=== PATIENT | female | born 1960 | race Caucasian/White ===

== ENCOUNTER 2021-04-03 16:56 | Emergency (ER) | payer BC, SELFPAY ==
[2021-04-03 17:16] VITALS: BP 121/82; PULSE 107; RESP 16; TEMP 36.6; O2SAT 96
[2021-04-03 17:25] LABS: Add Urine Microscopic? NO; Appearance Urine Clear (Clear); Bilirubin Urine Negative (Negative); Blood Urine Negative (Negative); Color Urine Yellow (Yellow); Glucose Urine UA Negative (Negative); Ketones Urine Negative (Negative); Leukocyte Esterase Ur Negative LEU/UL (Negative); Nitrate Urine Negative (Negative); Protein Urine Negative (Negative); Specific Grav Ur <= 1.005 (1.010-1.020); Urobilinogen Urine 0.2 mg/dL (0.2-1.0)
[2021-04-03 17:58] VITALS: RESP 15; O2SAT 100
--- NOTE | 2021-04-03 17:58 | ED.GENADULT ---
HPI - General Adult General Chief complaint: Back Pain/Injury Stated complaint: back pain Time Seen by Provider: 04/03/21 17:20 Related Data Home Medications Medication Instructions Recorded Confirmed lisinopril 30 mg PO DAILY 04/03/21 04/03/21 omeprazole 20 mg PO DAILY 04/03/21 04/03/21 Allergies Allergy/AdvReac Type Severity Reaction Status Date / Time No Known Allergies Allergy Unverified 12/22/13 14:32 Course Vital Signs Vital signs: Vital Signs Temperature 36.6 C 04/03/21 17:16 Pulse Rate 107 H 04/03/21 17:16 Respiratory Rate 16 04/03/21 17:16 Blood Pressure 121/82 04/03/21 17:16 Pulse Oximetry 96 04/03/21 17:16 Temperature 36.6 C 04/03/21 17:16 Pulse Rate 107 H 04/03/21 17:16 Respiratory Rate 16 04/03/21 17:16 Blood Pressure 121/82 04/03/21 17:16 Pulse Oximetry 96 04/03/21 17:16 Medical Decision Making Vital Signs Vital Signs: Vital Signs Temperature 36.6 C 04/03/21 17:16 Pulse Rate 107 H 04/03/21 17:16 Respiratory Rate 16 04/03/21 17:16 Blood Pressure 121/82 04/03/21 17:16 Pulse Oximetry 96 04/03/21 17:16 Temperature 36.6 C 04/03/21 17:16 Pulse Rate 107 H 04/03/21 17:16 Respiratory Rate 16 04/03/21 17:16 Blood Pressure 121/82 04/03/21 17:16 Pulse Oximetry 96 04/03/21 17:16 Lab Data Labs: Lab Results 04/03/21 Range/Units 17:21 Urine Color Yellow (Yellow) Urine Appearance Clear (Clear) Urine pH 6.0 (5.0-8.0) Ur Specific [place] <= 1.005 L (1.010-1.020) Urine Protein Negative (Negative) Urine Glucose (UA) Negative (Negative) Urine Ketones Negative (Negative) Ur Blood (Man) Negative (Negative) Urine Nitrate Negative (Negative) Urine Bilirubin Negative (Negative) Urine Urobilinogen 0.2 (0.2-1.0) mg/dL Leukocyte Esterase Rfl Negative (Negative) CONSTANTIN/UL Discharge Plan Discharge Clinical Impression: Urinary incontinence Qualifiers: Urinary Incontinence type: other incontinence Qualified Code(s): N39.498 - Other specified urinary incontinence Patient Disposition: Home, Self-Care Condition: Stable Instructions: Antibiotic Form, Urinary Incontinence (ED) Additional Instructions: Follow up with urology or gynecology as soon as possible Prescriptions: No Action lisinopril 30 mg tablet 30 mg PO DAILY RF: 0 omeprazole 20 mg capsule,delayed release(DR/EC) 20 mg PO DAILY RF: 0 Follow-up/Referrals: Alyssa,MD Isak [Primary Care Provider] - Time of Disposition: 18:00
--- NOTE | 2021-04-07 06:15 | ED.BACK ---
HPI - Back Pain/Injury General Chief Complaint: Back Pain/Injury Stated Complaint: back pain Time Seen by Provider: 04/03/21 17:20 Source: patient Mode of arrival: ambulatory Limitations: no limitations History of Present Illness HPI Narrative: Miss Bojorquez comes in because of worsening urinary incontinence. She has had what sounds like stress incontinence for quite some time. It had been relatively stable. Within the last three days it has seemed to get much worse. This has been quite disturbing to her and she comes in now to be evaluated for incontinence. No new medications. She has not felt she had a bladder infection. Measures taken at home have not helped. no other associated sign / symptoms. Nothing appears to have precipitated worsening of this condition Onset (ago): day(s) Timing: intermittent Severity: moderate Similar Symptoms Previously: Yes Relieving factors: none Associated symptoms: denies other symptoms and urinary incontinence Related Data Home Medications Medication Instructions Recorded Confirmed lisinopril 30 mg PO DAILY 04/03/21 04/03/21 omeprazole 20 mg PO DAILY 04/03/21 04/03/21 Allergies Allergy/AdvReac Type Severity Reaction Status Date / Time No Known Allergies Allergy Unverified 12/22/13 14:32 Review of Systems Constitutional: Constitutional: Reports no additional constitutional complaints Eyes: Eyes: Reports no additional eye complaints ENT: Reports system reviewed and no additional complaints, except as documented Cardiovascular: Cardiovascular: Reports no additional cardiovascular complaints Respiratory: Respiratory: Reports no additional respiratory complaints Gastrointestinal: Gastrointestinal: Reports no additional gastrointestinal complaints Genitourinary: Genitourinary: Reports no additional female genitourinary complaints Musculoskeletal: Musculoskeletal: Reports no additional musculoskeletal complaints Integumentary/Breasts: Skin/Breast: Reports system reviewed and no additional complaints, except as docu Neurologic: Reports system reviewed and no additional complaints, except as documented Psychiatric: Psychiatric: Reports no additional psychiatric complaints Endocrine: Endocrine: Reports no additional endocrine complaints Hematologic/Lymphatic: Hematologic/Lymphatic: Reports no additional hematologic/lymphatic complaints [facility] Past Medical History Medical History (Updated 04/07/21 @ 06:49 by Julio Mays MD) GERD (gastroesophageal reflux disease) HTN (hypertension) Surgical History Surgical History (Updated 04/07/21 @ 06:45 by Julio Mays MD) History of knee replacement Family History Family History (Updated 04/07/21 @ 06:45 by Julio Mays MD) Other Family history non-contributory Social History Social History (Updated 04/07/21 @ 06:47 by Julio Mays MD) Smoking status: Never smoker Living arrangements: with family Exam Const: General: no acute distress and alert Orientation/consciousness: patient oriented x3 HENMT: Head: normal to inspection Ears: external ears normal General nose exam: Normal external nose present Mouth: Yes Normal oral and palatal mucosa present Throat: posterior oropharynx normal Eyes: Conjunctivae: conjunctivae normal Neck: Neck: normal visual inspection and no lymphadenopathy Chest: Chest palpation & inspection: normal inspection of the chest Resp: Effort & Inspection: normal respiratory effort Auscultation: clear to auscultation bilaterally Cardio: Rate: regular rate Rhythm: regular rhythm GI: Auscultation: normal bowel sounds (nontender) : General: Yes no CVA tenderness Skin: General skin exam: normal color Neuro: General: patient oriented x3 and moves all extremities Extrem: General: normal to inspection Psych: Appearance: grossly normal Mental Status: mental status grossly normal Thought content: Yes Normal thought content present Course Course Emergency Course:
== END 2021-04-03 18:09 | disposition home or self-care (01) ==
PROVIDERS: Emergency Provider Emergency Medicine; PCP Family Medicine
DX: R32 Unspecified urinary incontinence (principal); K21.9 Gastro-esophageal reflux disease without esophagitis; I10 Essential (primary) hypertension; Z96.659 Presence of unspecified artificial knee joint
CPT/HCPCS: 81003; 99282; 99283

== ENCOUNTER 2023-02-27 01:04 | Day surgery (SDC) | payer BC, SELFPAY ==
[2023-02-17 12:40] VITALS: BMI 34.6
--- NOTE | 2023-02-17 12:45 | PC.NURSE ---
Report to the Outpatient Waiting Room, entrance under the green pavilion located off [facility], at time 1100 on date 02/27/23. Planned Procedure Time: 1200. Time changes happen often and if your time is changed the preop area will call you the afternoon before. - You and your visitor will be asked to self-screen and do not enter if you have any COVID symptoms. - A mask is optional within the hospital at this time. Patients may have LIGHT BREAKFAST. Take the following medications with a SIP of water the morning of surgery: PRESCRIBED DO NOT STOP ANY OF YOUR OTHER PRESCRIPTION MEDICATIONS PRIOR TO SURGERY EXCEPT THE FOLLOWING Medications to discontinue per physician: N/A Date to take last dose: N/A Please no make-up, nail bhutanese, hairspray, perfume, deodorant, or body powder the day of surgery. No jewelry (including any body piercings) or valuables the day of surgery, leave them at home. Please take a shower or bath the night before, or the morning of, surgery with an antibacterial soap. Wear comfortable, loose fitting clothing. - Jewelry must be removed prior to entering the operating room. Rings and piercings that are not removed may be cut off. - The hospital will not accept responsibility for valuables. - Please leave all valuables, including medications, at home the day of surgery. YOU MAY DRIVE YOURSELF HOME FROM THE HOSPITAL. Follow any additional instructions given to you from your surgeon. If you or anyone in your household have experienced Covid symptoms in the past week, please notify your surgeon or the nurse liaison at the phone number below for possible testing. Telephone instructions given to PT - CHELSEY COHEN and asked if any additional questions and then verbalized understanding. Patient advised to call surgeon office or pre surgery nurse liaison [phone] if any additional questions.
[2023-02-27 11:26] VITALS: BP 184/103; PULSE 84; RESP 16; TEMP 36.4; O2SAT 99
--- NOTE | 2023-02-27 11:51 | WPDHPUPDATE1 ---
History and Physical Update Update Date/Time: 02/27/23 11:51 History and Physical has been reviewed, including an updated exam of the patient. There are NO changes in the patient's condition. Risks, benefits, and alternatives have been discussed and questions answered. Patient agrees to proceed with procedure.
[2023-02-27 12:10] VITALS: BP 191/94; PULSE 80; RESP 16; O2SAT 96
[2023-02-27 12:20] VITALS: BP 184/91; PULSE 81; RESP 14; O2SAT 95
[2023-02-27] MEDS: LIDO 1%/EPINEPHRINE 1:100,000 50 ML VIAL INFILTRATE (12:20)
[2023-02-27 12:30] VITALS: BP 163/80; PULSE 80; RESP 14; O2SAT 95
--- NOTE | 2023-02-27 12:35 | W.PM.PROC2 ---
Procedure Note - Detailed Date of Procedure 02/27/23 Pre-op Diagnosis 2cm right shoulder mass Post-op Diagnosis Same (Lipoma) Procedure Performed 1. Excision of 2 cm right shoulder mass 2. Layered closure Surgeon Reymundo Moulton, DO Anesthesia Local (1% lidocaine with epinephrine) Indications This is a 62-year-old woman who presented with a painful mass on her right shoulder region. She 1st noticed this about 3 or 4 months ago. The area is slightly tender with activity or pressing it. She had an ultrasound which showed a soft tissue mass consistent a lipoma. Discussions were made the patient about treatment options and decision was made to proceed with excision 2 cm right shoulder mass the operating room under local anesthesia. Findings Excision 2 cm right shoulder mass was performed. The mass appeared to be a subcutaneous lipoma. It was completely excised and sent to the lab for pathology. A layered closure was then performed using 3-0 Vicryl deep dermal sutures followed by 4-0 Monocryl subcuticular suture. Description of Procedure Procedure as well as risks, benefits, and alternatives were discussed with the patient. Written consent was obtained and placed in chart prior to procedure. Patient was brought back to surgical suite. She was placed supine on operating table. Time-out was done to confirm patient and procedure. Right shoulder area was prepped and draped in sterile fashion using chlorhexidine prep. 1% lidocaine with epinephrine was infiltrated locally over mass. A 2 cm incision was then made using a 15 blade scalpel directly over mass. The mass was identified and carefully dissected free from the surrounding subcutaneous attachments using blunt dissection and electrocautery. The mass was completely excised and sent to the lab for pathology. The wound bed was then inspected. No other masses were identified. Hemostasis was achieved with electrocautery. Deep dermis was then reapproximated using 3-0 Vicryl inverted interrupted sutures. The skin was approximated using 4-0 Monocryl running subcuticular suture. Exofin glue was then applied on top. The patient was then transferred to recovery. Estimated Blood Loss 2 Pathology Yes (2 cm right shoulder mass) Complications No immediate complications Condition Stable Disposition Same day [facility] Billing Surgery - Charge Forward: Surgery Billing
[2023-02-27 12:36] VITALS: BP 149/95; PULSE 77; RESP 16; O2SAT 100
== END 2023-02-27 12:50 | disposition home or self-care (01) ==
PROVIDERS: PCP Family Medicine; Visit Provider Surgery
PROC: (CPT 24075; principal; 2023-02-27 12:00)
DX: D17.21 Benign lipomatous neoplasm of skin and subcutaneous tissue of right arm (principal)
CPT/HCPCS: 24075; 88304; A9270

== ENCOUNTER 2024-06-28 23:24 | Emergency (ER) | payer OTHER, SELFPAY ==
[2024-06-28 23:24] VITALS: BP 151/91; PULSE 72; RESP 18; TEMP 36.2; O2SAT 99
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
[2024-06-28] MEDS: TETANUS,DIPHTHERIA,AC PERTUSSIS ADULT 0.5 ML (ADACEL) IM (23:39)
--- NOTE | 2024-06-28 23:40 | PC.NURSE ---
non adherent telfa and coban to cover wound.
== END 2024-06-28 23:53 | disposition home or self-care (01) ==
LOC: CHSED 23:49
PROVIDERS: Emergency Provider Emergency Medicine; PCP Family Medicine
DX: T22.011A Burn of unspecified degree of right forearm, initial encounter (principal); T31.0 Burns involving less than 10% of body surface; I10 Essential (primary) hypertension; Z23 Encounter for immunization; Z87.891 Personal history of nicotine dependence; X13.1XXA Other contact with steam and other hot vapors, initial encounter; Y92.009 Unspecified place in unspecified non-institutional (private) residence as the place of occurrence of the external cause
CPT/HCPCS: 90471; 90715; 99282

== ENCOUNTER 2025-04-04 13:44 | Outpatient (CLI) | payer OTHER, SELFPAY ==
--- NOTE | ~2025-04-04 | XR_ITS ---
HISTORY: Fall x1 week, Lt. shoulder pain; worsening. COMPARISON: None TECHNIQUE: 3 views of the left shoulder were performed FINDINGS: No acute fracture. The glenohumeral and acromioclavicular joint space is maintained The visualized portion of the adjacent left lung is clear. Tacks are identified projecting over the left humeral head suggesting prior tendon repair. IMPRESSION: No acute fracture or anterior dislocation. Reviewed, dictated and finalized at location A.
--- OUTSIDE RECORDS SUMMARY | 2025-04-04 13:48 | XMS_ITS | Patient Health Record ---
Author Organization [employer] [facility] Address [address] [place] [address] Care Team Providers Care Vice Chairman Name Role Phone JOSE SMALL Unavailable [phone] Isak Shah Unavailable Unavailable Allergies No Known Allergies Reason For Referral No Information Medications Medication SIG (Take, Route, Frequency, Duration) Notes Start Date End Date Status CEPHALEXIN 500 MG CAPSULE for -2 *Reorder from [facility] for eRx and Interaction Alerts* 02/06/2023 Active LISINOPRIL 30 MG TABLET for -2 *Reorder from [facility] for eRx and Interaction Alerts* 01/31/2023 Active FLUCONAZOLE 200 MG TABLET for -2 *Reorder from [facility] for eRx and Interaction Alerts* 11/11/2022 Active MELOXICAM 15 MG TABLET for -2 *Reorder from [facility] for eRx and Interaction Alerts* 01/01/2023 Active ATORVASTATIN 20 MG TABLET for -2 *Reorder from [facility] for eRx and Interaction Alerts* 02/03/2023 Active BENZONATATE 200 MG CAPSULE for -2 *Reorder from [facility] for eRx and Interaction Alerts* 02/17/2023 Active MELOXICAM 15MG TAB for -2 *[facility]Rx and Interaction Alerts* 03/30/2023 Active AMOX-CLAV 875-125 MG TABLET for -2 *Reorder from [facility] for eRx and Interaction Alerts* 02/17/2023 Active METFORMIN HCL 850 MG TABLET for -2 *Reorder from [facility] for eRx and Interaction Alerts* 02/08/2023 Active HYDROCODONE-ACETAMIN 5-325 MG for -2 *Reorder from [facility] for eRx and Interaction Alerts* 05/10/2022 Active CYCLOBENZAPRINE 10 MG TABLET for -2 *Reorder from [facility] for eRx and Interaction Alerts* 02/28/[address] 40 MG CAPSULE for -2 *Re[facility] from [facility] for [facility]Rx and Interaction Alerts* 03/19/2023 Active PREDNISONE 50 MG TABLET for -2 [facility]* 02/17/2023 Active Problems Problem Type SNOMED Code ICD Code Onset Dates Problem Status W/U Status Risk Notes Problem Tinea unguium (937688900) Tinea unguium (B35.1) 2 Active confirmed Problem Family history of ischemic heart disease (545789691) Family history of ischemic heart disease and other diseases of the circulatory system (Z82.49) 2 Active confirmed Problem Essential hypertension (01059528) Essential (primary) hypertension (I10) 2 Active confirmed Plan Of Treatment No Information Insurance Providers Payer Name Payer Address Payer Phone Subscriber Number Group Number Insured Name Patient Relationship to Insured Coverage Start Date Coverage End Date [employer] [facility] [address] [address] [place] [address] [id number] CHELSEY COHEN Self - patient is the insured 3
== END 2025-04-04 13:45 | disposition home or self-care (01) ==
LOC: CHSIMG 13:46
PROVIDERS: PCP Family Medicine; Visit Provider Family Medicine
DX: M25.512 Pain in left shoulder (principal)
CPT/HCPCS: 73030

== ENCOUNTER 2025-05-15 06:52 | Outpatient (CLI) | payer OTHER, SELFPAY ==
--- NOTE | ~2025-05-15 | US_ITS ---
Duplex Sonography of the bilateral lower extremities: Indication: Right leg swelling and erythema Sagittal and transverse B-mode images as well as color-flow imaging were performed on the right and l eft femoral and popliteal veins. B-mode examination was done without and with compression in the tra nsverse plane. There is good visualization of the bilateral common femoral, proximal profunda femora l, superficial femoral, greater saphenous, and popliteal veins. Normal flow was seen on color-flow im aging. Normal compressibility was demonstrated. Visualized calf veins are also patent. Impression: No evidence of deep vein thrombosis involving either lower extremity. Reviewed, dictated and finalized at location M. Impression: No evidence of deep vein thrombosis involving either lower extremit y.
--- OUTSIDE RECORDS SUMMARY | 2025-05-15 06:57 | XMS_ITS | Patient Health Record ---
Author Organization [employer] Address [address] [place] [address] Care Team Providers Care Shark Biologist Name Role Phone JOSE SMALL Unavailable [phone] Isak Shah Unavailable Unavailable Allergies No Known Allergies Reason For Referral No Information Medications Medication SIG (Take, Route, Frequency, Duration) Notes Start Date End Date Status CEPHALEXIN 500 MG CAPSULE for -2 *Reorder from [facility] for eRx and Interaction Alerts* 02/06/2023 Active LISINOPRIL 30 MG TABLET for -2 *Reorder from [facility] for eRx and Interaction Alerts* 01/31/2023 Active FLUCONAZOLE 200 MG TABLET for -2 *Reorder from [facility] for eRx and Interaction Alerts* 11/11/2022 Active MELOXICAM 15 MG TABLET for -2 *Reorder from [facility] for eRx and Interaction Alerts* 01/01/2023 Active ATORVASTATIN 20 MG TABLET for -2 *Reorder from [facility] for eRx and Interaction Alerts* 02/03/2023 Active BENZONATATE 200 MG CAPSULE for -2 *Reorder from [facility] for eRx and Interaction Alerts* 02/17/2023 Active MELOXICAM 15MG TAB for -2 *[facility]* 03/30/2023 Active AMOX-CLAV 875-125 MG TABLET for -2 *Reorder from [facility] for eRx and Interaction Alerts* 02/17/2023 Active METFORMIN HCL 850 MG TABLET for -2 *[facility] and Interaction Alerts* 02/08/2023 Active HYDROCODONE-ACETAMIN 5-325 MG for -2 *[facility] for [facility]Rx and Interaction Alerts* 05/10/2022 Active CYCLOBENZAPRINE 10 MG TABLET for -2 *Reorder from [facility] for eRx and Interaction Alerts* 02/28/[address] 40 MG CAPSULE for -2 *[facility] for [facility]Rx and Interaction Alerts* 03/19/2023 Active PREDNISONE 50 MG TABLET for -2 *[facility] for [facility]Rx and Interaction Alerts* 02/17/2023 Active Problems Problem Type SNOMED Code ICD Code Onset Dates Problem Status W/U Status Risk Notes Problem Tinea unguium (817821713) Tinea unguium (B35.1) 2 Active confirmed Problem Family history of ischemic heart disease and other diseases of the circulatory system (Z82.49) 2 Active confirmed Problem Essential hypertension (27084004) Essential (primary) hypertension (I10) 2 Active confirmed Plan Of Treatment No Information Insurance Providers Payer Name Payer Address Payer Phone Subscriber Number Group Number Insured Name Patient Relationship to Insured Coverage Start Date Coverage End Date [employer] [facility] [address] [address] [facility] [place] [place] [id number] CHELSEY COHEN Self - patient is the insured 3
== END 2025-05-15 06:53 | disposition home or self-care (01) ==
LOC: CHSIMG 06:55
PROVIDERS: PCP Family Medicine; Visit Provider Family Medicine
DX: R60.0 Localized edema (principal)
CPT/HCPCS: 93970

== ENCOUNTER 2025-05-21 14:05 | Outpatient (CLI) | payer OTHER, SELFPAY ==
--- NOTE | ~2025-05-21 | XR_ITS ---
EXAM: XR ankle RT min 3V, XR foot RT min 3V, XR tibia fibula RT 2V DATE: 05/21/2025 14:33 HISTORY: PAIN IN RT ANKLE, RT FOOT, RT LOWER LEG fall 2 weeks ago . COMPARISON: None available. FINDINGS: Partially visualized, uncomplicated appearing right knee arthroplasty hardware. Osteopenia . No fracture or dislocation. No lytic or blastic lesion. Mild degenerative changes in the ankle and foot. Hallux valgus. Achilles and plantar enthesopathy. Pes planus. No erosion or periosteal change. Scattered vascular calcifications. IMPRESSION: No acute osseous finding in the right tibia/fibula, right ankle, or right foot. If there is knee pain consider dedicated radiographs of the knee, given the incomplete visualization of the ar throplasty hardware. Reviewed, dictated and finalized at [facility]. IMPRESSION: No acute osseous finding in the right tibia/fibula, right ankle, or right foot. If there is knee pain consider dedicated radiographs of the knee, given the incomplete visualization of the arthroplasty hardware. IMPRESSION: No acute osseous finding in the right tibia/fibula, right ankle, or right foot. If there is knee pain consider dedicated radiographs of the knee, given the incomplete visualization of the arthroplasty hardware.
--- OUTSIDE RECORDS SUMMARY | 2025-05-21 14:10 | XMS_ITS | Patient Health Record ---
Author Organization [facility] Address [address] [place] [address] Care Team Providers Care Alkylation Operator Name Role Phone JOSE SMALL Unavailable [phone] Isak Shah Unavailable Unavailable Allergies No Known Allergies Reason For Referral No Information Medications Medication SIG (Take, Route, Frequency, Duration) Notes Start Date End Date Status CEPHALEXIN 500 MG CAPSULE for -2 *Reorder from [facility] for eRx and Interaction Alerts* 02/06/2023 Active LISINOPRIL 30 MG TABLET for -2 *Reorder from [facility] for eRx and Interaction Alerts* 01/31/2023 Active FLUCONAZOLE 200 MG TABLET for -2 *Reorder from [facility] for eRx and Interaction Alerts* 11/11/2022 Active MELOXICAM 15 MG TABLET for -2 *Reorder from [facility] for eRx and Interaction Alerts* 01/01/2023 Active ATORVASTATIN 20 MG TABLET for -2 *Reorder from [facility] for eRx and Interaction Alerts* 02/03/2023 Active BENZONATATE 200 MG CAPSULE for -2 *Reorder from [facility] for eRx and Interaction Alerts* 02/17/2023 Active MELOXICAM 15MG TAB for -2 *Reorder from [facility] for eRx and Interaction Alerts* 03/30/2023 Active AMOX-CLAV 875-125 MG TABLET for -2 *Reorder from [facility] for eRx and Interaction Alerts* 02/17/2023 Active METFORMIN HCL 850 MG TABLET for -2 *Reorder from [facility] for eRx and Interaction Alerts* 02/08/2023 Active HYDROCODONE-ACETAMIN 5-325 MG for -2 *Reorder from [facility] for eRx and Interaction Alerts* 05/10/2022 Active CYCLOBENZAPRINE 10 MG TABLET for -2 *Reorder from [facility] for eRx and Interaction Alerts* 02/28/[address] 40 MG CAPSULE for -2 *Reorder from [facility] for eRx and Interaction Alerts* 03/19/2023 Active PREDNISONE 50 MG TABLET for -2 *[facility] Interaction Alert[facility]* 02/17/2023 Active Problems Problem Type SNOMED Code ICD Code Onset Dates Problem Status W/U Status Risk Notes Problem Tinea unguium (712280576) Tinea unguium (B35.1) 2 Active confirmed Problem Family history of ischemic heart disease (493321681) Family history of ischemic heart disease and other diseases of the circulatory system (Z82.49) 2 Active confirmed Problem Essential hypertension (72700372) Essential (primary) hypertension (I10) 2 Active confirmed Plan Of Treatment No Information Insurance Providers Payer Name Payer Address Payer Phone Subscriber Number Group Number Insured Name Patient Relationship to Insured Coverage Start Date Coverage End Date [employer] [facility] [address] [address] [place] [address] [id number] CHELSEY COHEN Self - patient is the insured 3
--- OUTSIDE RECORDS SUMMARY | 2025-05-21 14:10 | XMS_ITS | Encounter Summary ---
Author Organization [facility] Address Count includes the [facility] [place] [address] Care Team Providers Care Attractions Associate Name Role Phone Isak Shah MD Primary Care Provider Encounter Details Date Type Department Care Team (Late st Contact Info) Description 04/13/2019 Abstract SFL CONVERSION [address] [address] , Generic Conversion, Social History Tobacco Use Types Packs/Day Years Used Date Smoking Tobacco: Never Assessed Comments Unknown Sex and Gender Information Value Date Recorded Sex Assigned at Female 01/14/2025 5:13 PM CDT Legal Sex Female 7:43 PM CDT Gender Identity Not on file Sexual Orientation Not on file documented as of this encounter Plan of Treatment Not on file documented as of this encounter Visit Diagnoses Not on filedocumented in this encounter Additional Health Concerns Infection Onset Date Last Indicated Resolved Time COVID-19 Rule Out 04/05/2021 04/05/2021 04/05/2021 10:12 AM CDT COVID-19 Confirmed 04/05/2021 04/05/2021 12:34 AM CDT COVID-19 Rule Out 07/26/2021 07/26/2021 07/26/2021 8:17 PM CDT documented as of this encounter Care Teams Attractions Associate Relationship Specialty Start Date End Date Isak Shah MD [address] [place] [phone] PCP - General FAMILY PRACTICE 06/13/19 documented as of this encounter
--- OUTSIDE RECORDS SUMMARY | 2025-05-21 14:10 | XMS_ITS | Clinical Summary ---
Author Organization [facility] Address [address] [place] [address] Care Team Providers Care Slime Plant Operator Name Role Phone Isak Shah MD Primary Care Provider Allergies No known active allergies Medications lisinopril 30 MG tablet Take 1 tablet (30 mg total) by mouth daily. 0 06/08/2019 Active Multiple Vitamins-Minera ls (MULTIPLE VITAMINS/WOMENS OR) Take 1 tablet by mouth daily. Active magnesium oxide 400 (241.3 Mg) MG tablet Take 1 tablet (400 mg total) by mouth daily. Active vitamin C 250 MG tablet Take 1 tablet (250 mg total) by mouth daily. Active calcium carbonate 500 MG chewable tablet Chew 1 tablet (500 mg total) by mouth daily. Active vitamin D3, cholecalciferol , 1000 UNIT Tab tablet Take 1 tablet (25 mcg total) by mouth daily. Active omeprazole 40 MG capsule Take 1 capsule (40 mg total) by mouth daily. 08/10/2021 Active metFORMIN (GLUCOPHAGE) 850 MG tablet Take 1 tablet (850 mg total) by mouth daily with breakfast. 02/08/2023 Active Active Problems Problem Noted Date Diagnosed Date Rotator cuff tear arthropathy, unspecified later ality 01/13/2022 S/P arthroscopy of left shoulder 09/09/2021 Aftercare following surgery 08/09/2021 Traumatic partial tear of bi ceps tendon, left, subsequent encounter 07/15/2021 Traumatic injury of left sub scapularis tendon, subsequent encounter 07/15/2021 Osteoarthritis of left AC (acromioclavicular) gibran int 06/11/2021 Effusion of left knee 05/14/2020 Instability of knee joint, left 04/13/2020 Pes planus of both feet 10/22/2019 Aftercare following right knee joint replacement surgery 09/23/2019 Resolved Problems Problem Noted Date Diagnosed Date Resolved Date Sprain of lateral collateral ligament of left knee, initial encounter 04/13/2020 04/14/2020 Status post total right knee replacement 09/10/2019 09/23/2019 Osteoarthritis of right knee 09/09/2019 09/10/2019 Tear of medial meniscus of r ight knee, current, unspecified tear type, subsequent encounter 08/21/2019 09/10/2019 Primary osteoarthritis of right knee 06/18/2019 09/10/2019 Encounters Date Type Department Care Team Description 02/21/2025 7:39 AM CDT - 02/21/2025 11:59 PM CDT Hospital Encounter [facility] [address] [facility] [place] [place] [address] Olivier Ardon MD Discharge Disposition: Home or Self Care (Routine Discharge) 02/21/2025 Travel from Last 3 Months Family History Medical History Relation Comments Clotting Disorder Brother 1 No Known Problems Brother 2 No Known Problems Brother 3 Cancer Father esophageal Cancer Maternal Grandfather Heart Attack Maternal Grandmother Cancer Mother breast cancer in her 40's Emphysema Paternal Grandfather Heart Paternal Grandfather Cancer Paternal Grandmother Clotting Disorder Sister 1 No Known Problems Sister 2 No Known Problems Sister 3 Relation Status Comments Brother 1 Alive Brother 2 Brother 3 Father Maternal Grandfather Maternal Grandmother Mother Paternal Grandfather Paternal Grandmother Sister 1 Sister 2 Alive Sister 3 Alive Social History Tobacco Use Types Packs/Day Years Used Date Smoking Tobacco: Never Smokeless Tobacco: Never Alcohol Use Standard Drinks/Week Comments No 0 (1 standard drink = 0.6 oz pur e alcohol) AUDIT-C Answer Date Recorded Frequency of Alcohol Consumption Never 06/18/2019 Average Number of Drinks Not on file 019 Frequency of Binge Drinking Not on file 06/06 Comments No Sex and Gender Information Value Date Recorded Sex Assigned at Female 01/14/2025 5:13 PM CDT Legal Sex Female 7:43 PM CDT Gender Identity Not on file Sexual Orientation Not on file Last Filed Vital Signs Vital Sign Reading Time Taken Comments Blood Pressure 157/92 07/29/2021 1:30 PM CDT Pulse 63 07/29/2021 1:30 PM CDT Temperature 35.6 C (96 F) 07/29/2021 1:30 PM CDT Respiratory Rate 16 07/29/2021 1:30 PM CDT Oxygen Saturation 97% 07/29/2021 1:30 PM CDT Inhaled Oxygen Concentration - - Weight 97.5 kg (215 lb) 2024 12:55 PM CDT Height 165.1 cm (5' 5) 2024 12:55 PM CDT Body Mass Index 35.78 2024 12:55 PM CDT Plan of Treatment Health Maintenance Due Date Last Done Comments Cervical Cancer Screening Pap Smear (Age 30 to 64) Every 3 Years 1962 Colorectal Cancer Screening Colonoscopy (10 Years) 1962 Annual Physical 1965 Hepatitis C 1980 Cervical Cancer Screening Pap with HPV Testing (Age 30 to 64) Every 5 Years 1992 Cervical Cancer Screening with HPV 1992 Pneumococcal Vaccine: 50+ Years (1 of 1 - PCV) 2012 Zoster Vaccines (1 of 2) 2012 COVID-19 Vaccine (1 - season) 2024 Mammogram Screening 02/21/2027 02/21/2025, 02/20/2024, 01/16/2023, Additional history exists DTaP, Tdap and Td Vaccines (4 - Td or Tdap) 06/28/2034 06/28/2024, 10/08/2015, 07/22/2014 RSV Immunization or 60+ Years (1 - 1-dose 75+ series) 2037 Meningococcal B Vaccine Aged Out No l onger eligible based on patient's age to complete this topic Meningococcal Vaccine Aged Out No uriel william eligible based on patient's age to complete this topic RSV Immunizations Under 20 Months Aged Out No longer eligible based on patient's age to complete this topic Medical Devices Implanted Type Area Agronomy Instructor Device Identifier Shelf Expiration Date Model / Serial / Lot [place] Suture Bio-Swivelock C Arthrex - [id number] Implanted:Qty : 1 on 07/29/2021 by Kamron Christian MD at [facility] [place] Left: Shoulder [employer] [id number] 02/03/2025 AR-2324BCCT / / [id number] [place] Suture Arth[employer] - [id number] Implanted:Qty : 1 on 07/29/2021 by Kamron Christian MD at [facility] [place] Left: Shoulder [employer] [id number] 03/05/2025 AR-2324BCM / / [id number] [place] Suture Bio-Swivelock Arthrex 5.5 X 24.5 - [id number] Implanted:Qty : 1 on 07/29/2021 by Kamron Christian MD at [facility] [place] Left: Shoulder [employer] [id number] 10/05/2024 AR-2323BCM / / [id number] [place] Suture Arthrex - [id number] Implanted:Qty : 1 on 07/29/2021 by Kamron Christian MD at [facility] [place] Left: Shoulder [employer] [id number] 05/05/2025 AR-2324BCM / / [id number] [place] Suture [employer]threx - [id number] Implanted:Qty : 1 on 07/29/2021 by Kamron Christian MD at [facility] [place] Left: Shoulder [employer] [id number] 03/05/2025 AR-2324BCM / / [id number] [place] Suture Bio-Swivelock C Arthrex White/Black 4.75 X 19.1mm - [id number] Implanted:Qty : 1 on 07/29/2021 by Kamron Christian MD at [facility] [place] Left: Shoulder [employer] [id number] 02/03/2025 AR-2324BCCT T / / [id number] Cement Simplex Hv W/Gentamicin - [id number] Implanted:Qty : 1 on 09/09/2019 by Kamron Christian MD at [facility] Right: Knee [employer] 02/03/2021 [id number] / / [id number] Cement Simplex Hv W/Gentamicin - [id number] Implanted:Qty : 1 on 09/09/2019 by Kamron Christian MD at [facility] Right: Knee [employer] 02/03/2021 6195-1-010 / / [id number] Attune Femoral Posterior Stabilized Implanted:Qty : 1 on 09/09/2019 by Kamron Christian MD at [facility] Right: Knee 06/05/2028 [id number] / / [id number] Attune Knee System, Tibial Base Rotating Platform Implanted:Qty : 1 on 09/09/2019 by Kamron Christian MD at [facility] Right: Knee 02/03/2029 [id number] / / [id number] Attune Patella Medialized Dome Implanted:Qty : 1 on 09/09/2019 by Kamron Christian MD at [facility] Right: Knee 04/05/2024 [id number] / / [id number] Attune Tibial Rotating Platform Posterior Stabilized Implanted:Qty : 1 on 09/09/2019 by Kamron Christian MD at [facility] Right: Knee 06/05/2024 [id number] / / [id number] Procedures Procedure Name Priority Date/Time Associated Diagnosis Comments MG SCREENING W DARRICK KRISTINE DIGI Routine 02/21/2025 7:56 AM CDT Encounter for screening mammogram for malignant neoplasm of breast from Last 3 Months Results * MG SCREENING W DARRICK KRISTINE DIGI (02/21/2025 7:56 AM CDT) Anatomical Region Laterality Modality Breast Bilateral Mammography 02/21/2025 8:41 AM CDT Impressions 02/21/2025 8:41 AM CDT IMPRESSION: No suspicious change since the previous exams. Recommendation: 1: Routine Screening Bilateral in 1 Year Assessment: ACR BI-RADS 2 - BENIGN FINDING(S) Ordered By: OLIVIER ARDON Interpreted By: Galdino Finch MD, 02/21/2025 8:41 AM Narrative 02/21/2025 8:41 AM CDT [address] [place] [address] Examination: Digital screening mammogram with CAD. Clinical history: Asymptomatic patient presents for routine screening. Comparison: 02/20/2024, 01/16/2023, 12/27/2021, 12/23/2020. Technique: Bilateral digital mammograms. The exam was interpreted with the use of a computer-aided detection (CAD) system. Additional 3-D tomosynthesis images were acquired. Tissue density: The breasts are heterogeneously dense which may obscure small masses. Findings: The breast tissue is heterogeneously dense. The dense tissue may obscure some lesions mammographically. The denser tissues lie anteriorly. Benign-appearing calcification noted. No suspicious mass, microcalcification or area of architectural distortion can be identified. From a mammographic standpoint, routine followup in one year would seem adequate. us Olivier Ardon MD MAMMO Final Resu lt from Last 3 Months Insurance [facility] Advance Directives * Full Code (Latest Code Status on File) Date Activated Date Inactivated Comments 09/09/2019 7:20 PM 09/11/2019 6:38 PM Care Teams Slime Plant Operator Relationship Specialty Start Date End Date Isak Shah MD [address] [place] [phone] PCP - General FAMILY PRACTICE 06/13/19
== END 2025-05-21 14:06 | disposition home or self-care (01) ==
LOC: CHSIMG 14:08
PROVIDERS: PCP Family Medicine; Visit Provider Family Medicine
DX: M25.571 Pain in right ankle and joints of right foot (principal); M79.671 Pain in right foot; M79.661 Pain in right lower leg
CPT/HCPCS: 73590; 73610; 73630